=== PATIENT | male | born 1965 | race Caucasian/White ===

== ENCOUNTER 2024-01-26 11:07 | Emergency (ER) | payer OTHER, SELFPAY ==
[2024-01-26 11:09] VITALS: BP 178/111
--- NOTE | 2024-01-26 11:53 | ED.GENMED ---
History of Present Illness
<Zhane Dueñas PA-C - Last Filed: 01/26/24 12:23>
General
Chief Complaint: Musculo-Skeletal Complaint
Source: patient
Exam Limitations: none
Time Seen by Provider: 01/26/24 11:25
Nursing documentation reviewed up to this point in time: agreed with
History of Present Illness
History of Present Illness:
Patient is a 58 year old male presenting with right ankle inversion injury. Patient states he was stepping into his garage yesterday afternoon around 3 PM when he missed stepped and inverted his right ankle. Patient did not fall to the ground, hit
head, or sustain any other injuries in the fall. He has been able to weight-bear although does report pain with ankle range of motion. Patient denies any numbness/tingling in right lower extremity. Patient denies any pain in his right knee.
Patient does report a history of a right ankle avulsion fracture many years prior and came to the emergency department for further evaluation.
Past History
<Zhane Dueñas PA-C - Last Filed: 01/26/24 12:23>
Past History
ED Past Medical History: Other (angioedema)
ED Past Surgical History: Bowel resection
Social History
Tobacco: Non-smoker
Alcohol: Occasional
Personal:
Living: with family
Employment: Employed
Family History
Family History: Other
Review of Systems
<Zhane Dueñas PA-C - Last Filed: 01/26/24 12:23>
Review of Systems
Allergies reviewed?: Yes
All Other Systems: ROS reviewed and negative except as documented in HPI and ROS
Phy Exam
<Zhane Dueñas PA-C - Last Filed: 01/26/24 12:23>
Physical Exam
Physical Exam:
Vitals: Patient's vital signs are stable. Afebrile
General: Patient is well appearing, no acute distress
Skin: Warm and dry, no rashes or lesions
Head: Normocephalic, atraumatic
Throat: Protecting airway
Neck: Normal ROM, no cervical spine tenderness
Cardiac: Regular rate
Pulm: No apparent respiratory distress
Abdomen: Nondistended
Extremities: Mild edema of right lateral malleolus. No bony tenderness of right ankle or right foot. No tenderness at base of right fifth metatarsal, midfoot, calcaneus. No tenderness at head of right fibula. Full range of motion right ankle
including plantarflexion/dorsiflexion with mild pain. Right Achilles intact. Right knee atraumatic and nontender with full range of motion. Right lower extremity neurovascular intact.
Neuro: Grossly intact
Psychiatric: Normal affect.
Course
<Zhane Dueñas PA-C - Last Filed: 01/26/24 12:23>
Orders/Labs/Results
Orders:
Orders
01/26/24 11:08
Ankle, Right 3 view CR [CR Ankle - Right Min 3 Views *] Urgent
Comment:
Reason For Exam: pain
01/26/24 12:09
Air Splint Right-Treatment ONCE
Vital Signs
Initial and Last Documented VS:
Initial Vital Signs
Temp Pulse Resp BP Pulse Ox
97.9 F 79 16 178/111 97
01/26/24 11:09 01/26/24 11:09 01/26/24 11:09 01/26/24 11:09 01/26/24 11:09
Last Documented Vital Signs
Temp Pulse Resp BP Pulse Ox
97.9 F 79 16 178/111 97
01/26/24 11:09 01/26/24 11:09 01/26/24 11:09 01/26/24 11:09 01/26/24 11:09
<Kerri Tabares DO - Last Filed: 01/26/24 12:22>
Orders/Labs/Results
Orders:
Orders
01/26/24 11:08
Ankle, Right 3 view CR [CR Ankle - Right Min 3 Views *] Urgent
Comment:
Reason For Exam: pain
01/26/24 12:09
Air Splint Right-Treatment ONCE
Vital Signs
Initial and Last Documented VS:
Initial Vital Signs
Temp Pulse Resp BP Pulse Ox
97.9 F 79 16 178/111 97
01/26/24 11:09 01/26/24 11:09 01/26/24 11:09 01/26/24 11:09 01/26/24 11:09
Last Documented Vital Signs
Temp Pulse Resp BP Pulse Ox
97.9 F 79 16 178/111 97
01/26/24 11:09 01/26/24 11:09 01/26/24 11:09 01/26/24 11:09 01/26/24 11:09
<Zhane Dueñas PA-C - Last Filed: 01/26/24 12:23>
MDM/Problems Addressed
Differential Diagnosis Includes:
Not limited to: Ankle sprain, ankle fracture, foot sprain, foot fracture, etc.
MDM/Problems Addressed:
58-year-old male presenting with right ankle inversion injury after mechanical fall yesterday. No other associated injuries. Patient weightbearing with mild discomfort. Exam as above. Hypertensive on arrival, otherwise vital stable. X-ray of
right ankle obtained. Initial read shows no acute fracture or dislocation. No indication for other imaging at this time. Patient will be discharged with Aircast and RICE recommendations. NSAIDs at home as needed for pain. Ortho contact provided
if symptoms persist/worsen. Patient stable for discharge. Patient seen with attending physician.
Chronic conditions affecting care:
N/A
Acute Exacerbation and/or Progression of Chronic Illness:
N/A
<Zhane Dueñas PA-C - Last Filed: 01/26/24 12:23>
*Radiology
Radiology exam reviewed: preliminary read by ED provider (No acute fracture) and radiology read reviewed
*Pulse Oximetry
Patient hypoxic: no
*EKG
Interpreted by ED Provider?: NA
*Wood Craftsman Interpretation
Rate: Wood Craftsman- N/A
*Critical Care Note
Total Time (30-74mins, 75-104mins- exclusive of procedures): Not Applicable
ED Attending Note
<Zhane Dueñas PA-C - Last Filed: 01/26/24 12:23>
-
Portions of this chart may have been created with voice recognition software.� Occasional wrong word or��sound alike� substitutions may have occurred due to the inherent limitations of voice recognition software.
<Kerri Tabares DO - Last Filed: 01/26/24 12:22>
ED Attending Note
Patient seen and examined by attending physician: Yes
I performed the substantive portion of visit, reviewed & personally made and approve the management plan that is documented in note by myself or TONJA.: Yes
I performed a history and physical exam of patient and discussed management with resident, I reviewed resident's note and agree with documented findings and plan of care.: Yes
ED Attending Note:
58-year-old male presenting to the emergency department with right ankle pain. Patient has that he rolled his ankle on the steps yesterday and since has had pain with ambulation. Denies fall or trauma. Denies numbness or tingling. Has been able
to ambulate, however limping. Notes history of ankle injury in the past. Vital signs on arrival are significant for high blood pressure.
On exam patient is well-appearing, resting comfortably. Minimal swelling to the ankle joint without reproducible pain or tenderness. Range of motion is intact. Distal sensation and pulses intact. Suspected musculoskeletal strain. X-ray
obtained, no signs of fracture. Will place patient in a boot with plan for outpatient follow-up and continued supportive therapy. Return precautions discussed and patient verbalized understanding
Discharge Plan
Departure
Patient Disposition: Home (Routine Discharge)
Date of Disposition: 01/26/24
Time of Disposition: 12:10
Patient with high blood pressure during this ER visit?: Yes
Condition: Good
Covid-19: Not Applicable
Discharge Problem:
Sprain of ankle, right
Instructions: Ankle Sprain ED, BLOOD PRESSURE
Prescriptions:
No Action
cholestyramine (bulk) 5 GM powder
5 gm MC BID
epinephrine 0.3 MG/0.3 ML auto-injector
0.3 mg IM ONCE PRN (Reason: allergic reaction) Qty: 1 0RF
losartan 25 mg Tablet
25 mg PO DAILY
Referrals:
Yoanna Hargrove PA [Family Provider] -
Frank Albert MD [Active] - As needed
Activity Restrictions/Additional Instructions:
RETURN TO THE EMERGENCY DEPARTMENT WITH NUMBNESS/TINGLING IN RIGHT LOWER EXTREMITY, INTRACTABLE PAIN, WORSENING IN CURRENT SYMPTOMS, OR ANY OTHER CONCERNS
-As discussed�you should keep right ankle in Aircast as it heals. Continue to rest, ice, elevate as often as possible. Take Motrin at home as needed for discomfort.
-If symptoms persist/worsen you can follow-up with orthopedics for further evaluation/imaging.
Monitor your symptoms closely and return to the emergency department with any acute worsening/new symptoms.
Interventions
Interventions:
*Risk Screen - Suicide Last Done: 01/26/24 11:09
*General Assessment Last Done: 01/26/24 11:09
*Neglect/Abuse Screening Last Done: 01/26/24 11:09
Discharge Date and Time
Print Language: OMANI
[2024-01-26 12:30] VITALS: BP 143/74
== END 2024-01-26 12:30 | disposition home or self-care (01) ==
LOC: EMR 11:07
PROVIDERS: EMERGENCY PHYSICIAN Student in an Organized Health Care Education/Training Program; FAMILY PHYSICIAN Physician Assistant
DX: S93.401A Sprain of unspecified ligament of right ankle, initial encounter (principal); X50.1XXA Overexertion from prolonged static or awkward postures, initial encounter
CPT/HCPCS: 99283; 73610